=== PATIENT | male | born 1975 | race Caucasian/White ===

== ENCOUNTER 2018-01-31 07:24 | Inpatient (IN) | payer SELFPAY ==
[~2018-01-31] VITALS: Ht 170.2 cm; Wt 59.1 kg
[2018-01-31] MEDS ORDERED: ASPIRIN 81MG TABLET PO ONE (08:00)
[2018-01-31] MEDS: NITROGLYCERIN 0.4MG TABLET SL SL PRN ×3 (08:20→09:07)
[2018-01-31 08:30] LABS: BASOPHILS % 0.9 % (0.0-2.0); HEMOGLOBIN. 11.3 g/dL (14.0-18.0); MEAN CORPUSCULAR VOLUME 90.1 fL (80.0-94.0); MONOCYTES % 8.3 % (2.0-8.0); NEUTROPHILS % 59.8 % (40.0-76.0); PLATELET 315 x1000/uL (130-400); RED BLOOD CELL COUNT 3.78 mill/uL (4.7-6.1); RED CELL DISTRIBUTION WIDTH 15.7 % (11.6-14.6)
[2018-01-31] MEDS ORDERED: ONDANSETRON HCL 4MG/2ML VIAL IV ONE (08:30)
[2018-01-31] MEDS ORDERED: MORPHINE SULFATE 4 MG/ML CPJ (NOT FOR IM USE) IV ONE (08:30)
[2018-01-31 08:37] LABS: CHLORIDE 101 mEq/L (98-107); INR 1.1; PROTHROMBIN TIME 10.6 sec (9.1-11.1)
[2018-01-31] MEDS ORDERED: CLONIDINE 0.1MG TABLET PO PRN (10:45)
[2018-01-31] MEDS ORDERED: ACETAMINOPHEN 325MG TABLET PO PRN (10:45)
[2018-01-31] MEDS ORDERED: MAGNESIUM/ALUMINUM HYDROXIDE/SIMETHICONE 30ML UDC PO PRN (10:45)
[2018-01-31] MEDS ORDERED: IPRATROPIUM/ALBUTEROL 0.5-3(2.5)MG/3ML NEB INH PRN (10:45)
[2018-01-31] MEDS ORDERED: GUAIFENESIN 200MG/10ML SUGAR FREE UDC PO PRN (10:45)
[2018-01-31] MEDS ORDERED: NA PHOS,M-B/NA PHOS,DI-BA ENEMA 118ML PR PRN (10:45)
[2018-01-31] MEDS ORDERED: DIPHENHYDRAMINE 50MG/ML VIAL IV PRN (10:45)
[2018-01-31] MEDS ORDERED: DOCUSATE SODIUM 100MG CAPSULE PO PRN (10:45)
[2018-01-31] MEDS ORDERED: ONDANSETRON HCL 4MG/2ML VIAL IV PRN (10:45)
[2018-01-31] MEDS ORDERED: LORAZEPAM 0.5MG TABLET PO PRN (10:45)
[2018-01-31] MEDS ORDERED: NITROGLYCERIN 0.4MG TABLET SL SL PRN (10:45)
[2018-01-31] MEDS ORDERED: DEXTROSE 50% WATER 50ML SYRINGE IV PRN (10:45)
[2018-01-31] MEDS ORDERED: ACETAMINOPHEN WITH CODEINE 300/30MG TABLET PO ONE (12:00)
[2018-01-31] MEDS: BLOOD SUGAR DIAGNOSTIC STRIP TEST SCH ×3 (13:00→21:00)
[2018-01-31] MEDS: INSULIN LISPRO 100 UNITS/ML SUBCUT SCH ×3 (13:20→21:00)
[2018-01-31] MEDS: TRAMADOL 50MG TABLET PO PRN ×2 (15:51→22:06)
[2018-01-31] MEDS: HYDRALAZINE HCL 50MG TABLET PO SCH ×2 (16:00→22:05)
[2018-01-31] MEDS: FAMOTIDINE 20MG TABLET PO SCH (16:00)
[2018-01-31] MEDS: AMLODIPINE 10MG TABLET PO SCH (16:00)
[2018-01-31] MEDS ORDERED: ENOXAPARIN 30MG/0.3ML SYR SUBCUT SCH (16:00)
[2018-01-31] MEDS: FOLIC ACID/VITAMIN B COMP W-C TABLET PO SCH (16:00)
[2018-01-31 16:23] VITALS: BP_SYST 183; BP_SYST 185; BP_DIAS 63; BP_DIAS 89
[2018-01-31] MEDS: SEVELAMER CARBONATE 800 MG TABLET PO SCH (17:50)
[2018-01-31 20:36] VITALS: BP 175/67
[2018-01-31] MEDS ORDERED: ZOLPIDEM TARTRATE 5MG TABLET PO PRN (21:00)
[2018-01-31] MEDS: LISINOPRIL 20MG TABLET PO SCH (22:05)
[2018-01-31] MEDS: METOPROLOL TARTRATE 25MG TABLET PO SCH (22:06)
[2018-02-01 00:25] VITALS: BP 134/48
[2018-02-01 04:00] VITALS: BP 162/47
[2018-02-01] MEDS: HYDRALAZINE HCL 50MG TABLET PO SCH (06:00)
[2018-02-01] MEDS: BLOOD SUGAR DIAGNOSTIC STRIP TEST SCH (06:18)
[2018-02-01] MEDS: INSULIN LISPRO 100 UNITS/ML SUBCUT SCH (07:50)
[2018-02-01] MEDS ORDERED: ASPIRIN 325MG EC TABLET PO SCH (09:00)
[2018-02-01] MEDS: FAMOTIDINE 20MG TABLET PO SCH (09:15)
[2018-02-01] MEDS: SEVELAMER CARBONATE 800 MG TABLET PO SCH (09:15)
[2018-02-01] MEDS: FOLIC ACID/VITAMIN B COMP W-C TABLET PO SCH (09:15)
[2018-02-01] MEDS: LISINOPRIL 20MG TABLET PO SCH (09:15)
[2018-02-01] MEDS: METOPROLOL TARTRATE 25MG TABLET PO SCH (09:16)
[2018-02-01] MEDS: AMLODIPINE 10MG TABLET PO SCH (09:22)
[2018-02-01] MEDS: TRAMADOL 50MG TABLET PO PRN (09:23)
[2018-02-01 12:00] VITALS: BP 138/62
[2018-02-01 12:58] VITALS: BP 126/75
== END 2018-02-01 14:50 | disposition home or self-care (01) | DRG 133 ==
LOC: ER 07:24 → 6WST 09:53 → OBSVTOIN 09:53 → EDBEDREQ 09:56 → ENRESERV 13:50
PROVIDERS: ADMIT Internal Medicine; ATTEND Internal Medicine
PROC: 5A1D70Z Performance of Urinary Filtration, Intermittent, Less than 6 Hours Per Day (ICD-10-PCS; principal; 2018-01-30)
DX: J96.00 Acute respiratory failure, unspecified whether with hypoxia or hypercapnia (principal); I50.33 Acute on chronic diastolic (congestive) heart failure; N18.6 End stage renal disease; E11.21 Type 2 diabetes mellitus with diabetic nephropathy; E11.22 Type 2 diabetes mellitus with diabetic chronic kidney disease; I13.2 Hypertensive heart and chronic kidney disease with heart failure and with stage 5 chronic kidney disease, or end stage renal disease; D63.8 Anemia in other chronic diseases classified elsewhere; Z91.11 Patient's noncompliance with dietary regimen; Z91.19 Patient's noncompliance with other medical treatment and regimen; Z99.2 Dependence on renal dialysis
CPT/HCPCS: 36415; 71045; 80053; 80061; 82962; 83036; 83880; 84484; 85025; 85610; 93005; 93970; G0378; J2270; J2405; J7030